=== PATIENT | female | born 1990 ===

== ENCOUNTER 2018-09-09 12:16 | Emergency (ER) | payer MEDICAID ==
[2018-09-09 12:44] VITALS: O2SAT 100
[2018-09-09] MEDS ORDERED: Sodium Chloride 0.9% 1,000 ML IV STA (15:01)
[2018-09-09] MEDS ORDERED: Sodium Chloride 0.9% 1,000 ML ONE (15:18)
[2018-09-09 15:29] LABS: BASO % 0.2 % (0.0-2.0); EOS % 0.4 % (0.0-4.0); HEMOGLOBIN 11.2 g/dL (11.0-16.0); LYMPH # 2.1 K/uL (1.0-4.3); LYMPH % 41.1 % (20.0-40.0); MEAN CELL VOLUME 86.5 fL (81.0-99.0); MEAN CORPUSCULAR HEMOGLOBIN 29.2 pg (27.0-31.0); MEAN CORPUSCULAR HGB CONC 33.7 g/dL (33.0-37.0); MEAN PLATELET VOLUME 8.9 fL (7.2-11.7); MONO # 0.3 K/uL (0.0-0.8); MONO % 6.1 % (0.0-10.0); NEUT # 2.6 K/uL (1.8-7.0); NEUT % 52.2 % (50.0-75.0); NRBC % 0.1 % (0.0-2.0); RBC 3.84 Mil/uL (3.80-5.20); RED CELL DISTRIBUTION WIDTH 14.4 % (11.5-14.5); WHITE BLOOD COUNT 5.1 K/uL (4.8-10.8)
[2018-09-09 15:45] LABS: ALB/GLOB RATIO 1.7 (1.0-2.1); ALBUMIN 4.6 g/dL (3.5-5.0); ALT/SGPT 36 U/L (9-52); AST/SGOT 36 U/L (14-36); BLOOD UREA NITROGEN 10 mg/dL (7-17); GFR NON-AFRICAN AMERICAN > 60
--- NOTE | 2018-09-09 15:54 | C.PDOC ---
History Of Present Illness 28 year old female presents to ED with complaint of heavy vaginal bleeding and abdominal pain that began last night. Patient is 4 weeks post- after vaginal delivery. Patient describes the pain as severe and states that she has used 10 pads since last night. Patient also complains of weakness and dizziness. Patient denies nausea, vomiting, and fever. Time Seen by Provider: 09/09/18 14:25 Chief Complaint (Nursing): Female Genitourinary History Per: Patient History/Exam Limitations: no limitations Onset/Duration Of Symptoms: Days (1) Current Symptoms Are (Timing): Still Present Quality Of Discomfort: "Pain" Associated Symptoms: Other (weakness and dizziness). denies: Fever, Chills, Nausea, Vomiting Alleviating Factors: None Abnormal Vaginal Bleeding: Yes Past Medical History Reviewed: Historical Data, Nursing Documentation, Vital Signs Vital Signs: Last Vital Signs Temp 98.6 F 09/09/18 12:40 Pulse 67 09/09/18 12:40 Resp 17 09/09/18 12:40 BP 101/63 09/09/18 12:40 Pulse Ox 100 09/09/18 12:40 - Medical History PMH: No Chronic Diseases Surgical History: No Surg Hx Family History: States: Unknown Family Hx - Social History Hx Alcohol Use: No Hx Substance Use: No - Immunization History Hx Tetanus Toxoid Vaccination: Yes Hx Influenza Vaccination: No Hx Pneumococcal Vaccination: No Review Of Systems Constitutional: Positive for: Weakness. Negative for: Fever, Chills Gastrointestinal: Positive for: Abdominal Pain. Negative for: Nausea, Vomiting, Diarrhea Genitourinary: Positive for: Vaginal Bleeding Neurological: Positive for: Weakness, Dizziness. Negative for: Numbness Physical Exam - Physical Exam Appears: Well, Non-toxic, No Acute Distress Skin: Normal Color, Warm, Dry Head: Atraumatic, Normacephalic Neck: Normal ROM, Supple Chest: Symmetrical, No Deformity Cardiovascular: Rhythm Regular, No Murmur Respiratory: No Accessory Muscle Use, No Rales, No Rhonchi, No Wheezing Gastrointestinal/Abdominal: No Soft, No Tenderness Extremity: Capillary Refill (<2 seconds ) Neurological/Psych: Oriented x3, Normal Speech, Normal Cognition ED Course And Treatment - Laboratory Results Result Diagrams: 09/09/18 15:18 09/09/18 15:18 Lab Results: Total Bilirubin 1.0 mg/dL (0.2-1.3) 09/09/18 15:18 AST 36 U/L (14-36) 09/09/18 15:18 ALT 36 U/L (9-52) 09/09/18 15:18 Alkaline Phosphatase 108 U/L (38-126) 09/09/18 15:18 Total Protein 7.4 g/dL (6.3-8.3) 09/09/18 15:18 Albumin 4.6 g/dL (3.5-5.0) 09/09/18 15:18 Globulin 2.7 gm/dL (2.2-3.9) 09/09/18 15:18 Albumin/Globulin Ratio 1.7 (1.0-2.1) 09/09/18 15:18 O2 Sat by Pulse Oximetry: 100 (in RA) - CT Scan/US ultrasound Other Rad Studies (CT/US): Read By Radiologist, Radiology Report Reviewed CT/US Interpretation: Date of service: 09/09/2018. HISTORY: 1 month post heavy bleeding. Beta HCG results: Less than 5 units. COMPARISON: None available. TECHNIQUE: Transabdominal, transvaginal. Real -time technique with 2D, duplex and color Doppler. FINDINGS: UTERUS: Measures 4.45.7 x 7.7 cm. Heterogeneous myometrium without focal abnormality. No fibroid or other mass lesion seen. ENDOMETRIUM: Measures 8.9 mm in diameter. Heterogeneous endometrium without focal abnormality. CERVIX: No cervical abnormality identified. RIGHT OVARY: Measures 2 x 3.2 x 3.5 cm. No solid mass. Normal flow. LEFT OVARY: Measures 1.6 x 2.4 x 2.5 cm. No solid mass. Normal flow. FREE FLUID: Trace free fluid identified in the pelvis/cul de sac. OTHER FINDINGS: None. IMPRESSION: Heterogeneous endometrium common normal endometrial thickness. No residual products of conception identified. Trace free fluid identified in the pelvis/cul de sac. Progress Note: Labs ordered with CMP, CBC, and B-HCG. Pelvic US ordered. P atient given IV fluids. On re-evaluation patient feels better, and is stable to be d/c home with OBGYN follow up. Disposition - Disposition Disposition: HOME/ ROUTINE Disposition Time: 18:28 Condition: STABLE Additional Instructions: Follow up with your OBGYN within 1-2 days. Return to ED if feel worse. Instructions: Heavy Periods (DC) Forms: [facility] (Estonian) Print Language: MOLDOVAN - Clinical Impression Clinical Impression: Vaginal bleeding - PA / PEDIATRIC CNS / Resident Statement MD/DO has reviewed & agrees with the documentation as recorded. (Seema Mccollum) - Scribe Statement The provider has reviewed the documentation as recorded by the Scribe (Seema Mccollum) All medical record entries made by the Scribe were at my direction and personally dictated by me. I have reviewed the chart and agree that the record accurately reflects my personal performance of the history, physical exam, medical decision making, and the department course for this patient. I have also personally directed, reviewed, and agree with the discharge instructions and disposition.
[2018-09-09 16:03] VITALS: RESP 16
--- NOTE | 2018-09-09 18:22 | US ---
Date of service: 09/09/2018 HISTORY: 1 month post heavy bleeding Beta HCG results: Less than 5 units. COMPARISON: None available. TECHNIQUE: Transabdominal, transvaginal. Real -time technique with 2D, duplex and color Doppler. FINDINGS: UTERUS: Measures 4.45.7 x 7.7 cm. Heterogeneous myometrium without focal abnormality. No fibroid or other mass lesion seen. ENDOMETRIUM: Measures 8.9 mm in diameter. Heterogeneous endometrium without focal abnormality. CERVIX: No cervical abnormality identified. RIGHT OVARY: Measures 2 x 3.2 x 3.5 cm. No solid mass. Normal flow. LEFT OVARY: Measures 1.6 x 2.4 x 2.5 cm. No solid mass. Normal flow. FREE FLUID: Trace free fluid identified in the pelvis/cul de sac. OTHER FINDINGS: None. IMPRESSION: Heterogeneous endometrium common normal endometrial thickness. No residual products of conception identified. Trace free fluid identified in the pelvis/cul de sac.
[2018-09-09 18:37] VITALS: BP 97/61; PULSE 62; TEMP 99
== END 2018-09-09 18:36 | disposition home or self-care (01) ==
LOC: C.ER 12:16
DX: N93.9 Abnormal uterine and vaginal bleeding, unspecified (principal)
CPT/HCPCS: 76830; 76856; 80053; 81025; 84702; 85025; 96360; 99285; J7030